=== PATIENT | female | born 1980 | race Caucasian/White ===

== ENCOUNTER 2019-09-04 19:44 | Emergency (ER) | payer OTHER ==
--- NOTE | 2019-09-04 21:29 | RADIOLOGY REPORT (SQ) ---
EXAM DESCRIPTION: XR CHEST 1 VIEW COMPLETED DATE/TME: 09/04/2019 20:52 CLINICAL HISTORY: 39 years, Female, eval for picc line placement COMPARISON: None. NUMBER OF VIEWS: One TECHNIQUE: Single frontal view of the chest was obtained portably LIMITATIONS: None. FINDINGS: Right-sided PICC tip is located within the right brachiocephalic vein/SVC junction. Cardiac and mediastinal contours are normal in appearance. Lungs are clear. No pleural effusion or pneumothorax. IMPRESSION: Right-sided PICC tip is located within the right brachiocephalic vein/SVC junction. Otherwise, clear lungs. copyright 2010 [employer]- All Rights Reserved
[2019-09-04] MEDS ORDERED: ERTAPENEM SODIUM INJ 1 GM VIAL IV ONE (21:35)
--- NOTE | 2019-09-04 21:44 | ER Document Report ---
HPI - HPI Time Seen by Provider: 09/04/19 20:48 Pain Level: Denies Notes: Patient is a 39-year-old female presenting to the emergency department with concern for PICC line dislodgment. Patient's home health nurse was doing a dressing change when the adhesive from a dressing got stuck to the nurse's glove and the PICC line was displaced by approximately 2 to 3 cm. A new dressing was immediately placed. Patient then called interventional radiology at [facility] who is the one following her and they stated as long as the PICC line flushed and could draw back blood but it was fine. If patient was overly concerned she could come to the emergency department. Past Medical History - General Information source: Patient - Social History Smoking Status: Never Smoker Frequency of alcohol use: None Drug Abuse: None Family History: Reviewed & Not Pertinent Patient has suicidal ideation: No Patient has homicidal ideation: No - Medical History Medical History: Negative - Past Medical History Cardiac Medical History: Denies: Hx Coronary Artery Disease, Hx Heart Attack, Hx Hypertension Pulmonary Medical History: Denies: Hx Asthma, Hx Bronchitis, Hx COPD, Hx Pneumonia Neurological Medical History: Denies: Hx Cerebrovascular Accident, Hx Seizures Musculoskeletal Medical History: Denies Hx Arthritis Past Surgical History: Reports: Hx Appendectomy, Hx Section. Denies: Hx Hysterectomy, Hx Pacemaker - Immunizations Immunizations up to date: Yes Vertical Provider Document - CONSTITUTIONAL Notes: PHYSICAL EXAMINATION: GENERAL: Well-appearing, well-nourished and in no acute distress. HEAD: Atraumatic, normocephalic. EYES: Pupils equal round extraocular movements intact, conjunctiva are normal. ENT: Nares patent NECK: Normal range of motion LUNGS: No respiratory distress Musculoskeletal: Normal range of motion NEUROLOGICAL: Normal speech, normal gait. PSYCH: Normal mood, normal affect. SKIN: PICC line noted to right upper arm, dressing intact. - INFECTION CONTROL TRAVEL OUTSIDE OF THE [place] IN LAST 30 DAYS: No Course - Re-evaluation Re-evalutation: PICC line in place, flushes well, blood return noted. Patient given dose of her antibiotics since she missed them. She will follow-up with her PICC team for further management. Copy of xray given to patient. Chest X-Ray 09/04/19 20:52 IMPRESSION: Right-sided PICC tip is located within the right brachiocephalic vein/SVC junction. Otherwise, clear lungs. copyright 2010 [employer]- All Rights Reserved - Vital Signs Vital signs: Temp Pulse Resp BP Pulse Ox 97.7 F 78 18 130/76 H 100 09/04/19 19:58 09/04/19 19:58 09/04/19 19:58 09/04/19 19:58 09/04/19 19:58 Discharge - Discharge Clinical Impression: picc line evaluation Condition: Stable Disposition: HOME, SELF-CARE Additional Instructions: You were given a copy of the x-ray which shows the PICC line is still in place. It is safe to use the PICC line. Please call your PICU team tomorrow and let them know what the radiologist basilia torres reads. Keep any and all follow-up appointments as directed. Referrals: CONSTANZA WALTON MD [Primary Care Provider] - Follow up as needed
[2019-09-04 23:45] VITALS: BP 104/67
== END 2019-09-04 23:43 | disposition home or self-care (01) ==
LOC: ER 19:44
DX: Z45.2 Encounter for adjustment and management of vascular access device (principal)
CPT/HCPCS: 99283; 96365; 71045; J1335; J1642